=== PATIENT | female | born 1995 | race Caucasian/White ===

== ENCOUNTER 2020-05-08 21:11 | Inpatient (IN) | payer MEDICAID, SELFPAY ==
[~2020-05-08] VITALS: Ht 162.6 cm; Wt 55.8 kg
[2020-05-08 21:25] VITALS: BP_SYST 157
--- NOTE | 2020-05-08 21:30 | NUR ---
Patient to ER bed 8 to gown for evaluation. Side rails up. Report given to NATHAN.
--- NOTE | 2020-05-08 21:43 | NUR ---
BLOOD DRAWN PER LAB AND SENT
--- NOTE | 2020-05-08 21:45 | NUR ---
PT. BIB FRIEND A&Ox3 CC OVERDOSE PT. STATES SHE TOOK 60 PILLS OF BENADRYL NO SOB NO C/P PT. STATES "I JUST DID IT" AND STATES TAHT SHE WASNT TRYING TO HURT HERSELF AND WASNT IN ANY KIND OF ARGURMENT BUT THAT SHE WAS "OVERWHELMED WITH LIFE" SO SHE TOOK THE PILLS. PT. IS AMBULATORY WITH ASSISTANCE. WILL CONTINUE TO MONITOR Addendum: 05/08/20 at 2258 by [email or web address] PT. BIB FRIEND A&Ox3 CC OVERDOSE PT. STATES SHE TOOK 60 PILLS OF BENADRYL DENIES SOB AND C/P PT. STATES "I JUST DID IT" AND DENIES ATTEMPTIING TO HARM HERSELF JUST THAT SHE WAS "OVERWHELMED WITH LIFE" SO SHE TOOK THE PILLS. PT. IS AMBULATORY WITH ASSISTANCE. WILL CONTINUE TO MONITOR PT. ALSO STATES THAT SHE WAS TESTED 2 DAYS AGO AND WAS COVID POSITIVE
[2020-05-08 21:51] LABS: BASOPHILS % (AUTO) 0.2 % (0.0-2.0); EOSINOPHILS % (AUTO) 0.2 % (0.0-4.0); HEMATOCRIT 43.8 % (36-48); HEMOGLOBIN 14.3 g/dL (12.0-16.0); LYMPHOCYTES # (AUTO) 1.9 K/uL (1.0-5.5); LYMPHOCYTES % (AUTO) 26.3 % (20.5-51.5); MEAN CORPUSCULAR HEMOGLOBIN 31 pg (27-31); MEAN CORPUSCULAR HGB CONC 33 % (32-36); MEAN CORPUSCULAR VOLUME 95 fL (79.0-98.0); MONOCYTES # (AUTO) 0.6 K/uL (0.0-1.0); MONOCYTES % (AUTO) 8.6 % (1.7-9.3); NEUTROPHILS # (AUTO) 4.7 K/uL (1.8-7.7); NEUTROPHILS % (AUTO) 64.7 % (40.0-70.0); PLATELET COUNT (AUTO) 256 K/uL (130-430); RED BLOOD CELL COUNT(AUTO) 4.63 MIL/uL (4.2-6.2); RED CELL DISTRIBUTION WIDTH 14.1 % (9.0-15.0); WHITE BLOOD COUNT (AUTO) 7.2 K/uL (4.8-10.8)
--- NOTE | 2020-05-08 21:55 | NUR ---
PT. PLACED IN SIEZURE PRECAUTIONS WITH BOTH SIDE RAILS UP
--- NOTE | 2020-05-08 21:55 | NUR ---
Called poison control at , s/[facility] who recommended close monitoring for urinary retention, QRS widening, seizure episode, hypotension. Also stated that meds can cause drowsiness, dry mouth. To give NaHCO3 bolus as needed if +QRS widening on EKG, recommended seizure precaution, CMP, salicylate, UDS, blood alcohol, tylenol level and labs that the ER MD already ordered. Pt to be monitored for 6 to 8 hrs, until more stable.
--- NOTE | 2020-05-08 21:55 | NUR ---
PORTABLE CXR DONE AT BEDSIDE
[2020-05-08] MEDS ORDERED: DIAZEPAM 10 MG/2 ML DISP.SYRIN IVP ONE (22:00)
[2020-05-08] MEDS ORDERED: NACL 0.9% 2,000 ML IV ONE (22:00)
[2020-05-08] MEDS ORDERED: ACTIVATED CHARCOAL 50 GM ORAL.SUSP PO ONE ×2 (22:00→22:01)
[2020-05-08 22:04] LABS: ANION GAP 10 (5-15); CALCIUM 8.9 mg/dL (8.4-11.0); CHLORIDE 102 mmol/L (98-107); CREATININE 0.77 mg/dL (0.55-1.30); GLUCOSE 101 mg/dL (70-99); POTASSIUM 3.1 mmol/L (3.5-5.1); SODIUM SERUM 140 mmol/L (136-145); UREA NITROGEN, BLOOD 15 mg/dL (8-21)
--- NOTE | 2020-05-08 22:05 | NUR ---
R.T. AT BEDSIDE FOR ABG AND COVID SWAB OBTAINED AND SENT
[2020-05-08 22:06] LABS: GFR AFRICAN AMERICAN 121 mL/min (>90); PROTHROMBIN TIME 10.5 SECS (9.5-12.5)
[2020-05-08] MEDS ORDERED: LORazepam 2 MG/ML VIAL IVP ONE (22:15)
[2020-05-08 22:18] LABS: ALANINE AMINOTRANSFERASE 18 U/L (12-78); ALBUMIN 4.4 g/dL (3.4-4.8); ASPARTATE AMINOTRANSFERASE 14 U/L (10-37); BILIRUBIN,DIRECT 0.1 mg/dL (0.0-0.3); LIPASE 97 U/L (73-393); TOTAL BILIRUBIN 0.4 mg/dL (0.0-1.0)
[2020-05-08 22:22] LABS: ACETAMINOPHEN < 1 ug/mL (1-30); HCG,QUANTITATIVE 2 mIU/ML (0-6)
--- NOTE | 2020-05-08 22:30 | NUR ---
PT. IS BECOMING LETHARGIC AND UNCOMPREHENDABLE YET STILL ABLE TO FOLLOW COMANDS AND AROUSABLE TO PAIN MD RETANA NOTIFIED
--- NOTE | 2020-05-08 22:30 | NUR ---
DR. RETANA AT BEDSIDE TO RE-EVALUATE PT STATUS
--- NOTE | 2020-05-08 22:50 | NUR ---
PT. URINE OBTAINE DVIA STRAIGHT IN/OUT CATH AND DIPED IN ER THEN SENT TO LAB FOR FURTHER RESULTS
[2020-05-08] MEDS ORDERED: D5LR 1,000 ML IV ONE (23:00)
--- NOTE | 2020-05-08 23:00 | NUR ---
Patient incontinent of URINE . Patient cleaned, new gown applied and sheets changed. Patient given call light to notify of need to go to bathroom. PT CONFUSED AND ATTEMPTING TO EXIT THE BED PT. PLACED IN LOWEST POSITION WITH SIDE RAISL UP AND PADDED PT. REORIENTED AND REPOSITIONED
[2020-05-08 23:05] LABS: BILIRUBIN,URINE NEGATIVE (NEGATIVE); BLOOD, URINE NEGATIVE (NEGATIVE); CLARITY/URINE CLEAR (CLEAR); COLOR,URINE YELLOW (YELLOW); GLUCOSE,URINE NEGATIVE (NEGATIVE); KETONES,URINE 1+ (NEGATIVE); LEUKOCYTE ESTERASE ,URINE NEGATIVE (NEGATIVE); NITRITE, URINE NEGATIVE (NEGATIVE); PH,URINE 7.5 (5.0-8.0); PROTEIN URINE NEGATIVE (NEGATIVE); UROBILINOGEN,URINE 0.2 (0.2-1.0)
--- NOTE | 2020-05-08 23:11 | NUR ---
PT. WANDED BY HOSPITAL SECURITY AND PT. BELONGINGS SENT WITH [facility]
[2020-05-08 23:15] LABS: BARBITURATE, URINE NEGATIVE (NEG <=200); BENZODIAZEPINE, URINE NEGATIVE (NEG <=150); CANNABINOID, URINE NEGATIVE (NEG <=50); COCAINE, URINE NEGATIVE (NEG <=150); METHAMPHETAMINES SCREEN,URINE NEGATIVE (NEG <=500); OPIATE, URINE NEGATIVE (NEG <=100); PHENCYCLIDINE SCREEN,URINE NEGATIVE (NEG <=25); UR TRICYCLIC ANTIDEPRESSANTS NEGATIVE (NEG <=300); URINE AMPHETAMINE NEGATIVE (NEG <=500); URINE METHADONE NEGATIVE (NEG <=200); URINE OXYCODONE SCREEN NEGATIVE (NEG <=100); URINE PROPOXYPHENE SCREEN NEGATIVE (NEG <=300)
--- NOTE | 2020-05-08 23:25 | NUR ---
SPOKE WITH TELEPSYCH AND INFORMED MD RETANA OF CONSULT TO PUT ON A 7400 HOLD
--- NOTE | 2020-05-08 23:50 | NUR ---
Patient incontinent of URINE . Patient cleaned, new gown applied and sheets changed. Patient CONFUSED AND GIVEN REORIENTATION AND REPOSITIONING
--- NOTE | 2020-05-09 | NUR ---
PT. ATTEMPTING TO GET OUT OF BED NEEDS REORIENTATION
[2020-05-09] MEDS: D5/0.45 NS 1,000 ML IV SCH ×2 (00:03→12:50)
--- NOTE | 2020-05-09 00:30 | NUR ---
PT. TOLERATING CATHEDER PLACEMENT AND IN BED WITH SEIZURE PADS ON BED RAILS 1200ML OF URINE OUTPUT NOTED IN BRASWELL BAG WILL CONTINUE TO MONITOR
--- NOTE | 2020-05-09 01:00 | NUR ---
PT. CONTINUES TO GET OUT OF BED AND REMOVE IV CONTIUED TO ATTEMPT TO REORIENT PT DUE TO MOMENTS OF CONFUSION
--- NOTE | 2020-05-09 02:00 | NUR ---
PT. CONTINUES TO HAVE MOMENTS OF CONFUSION AND NEEDS REORIENTATION AND REPOSITIONING IN BED
--- NOTE | 2020-05-09 02:35 | NUR ---
PT. BRASWELL CATH BAG DRAINE DOF 1600ML OF CLEAR YELLOW URINE
--- NOTE | 2020-05-09 02:59 | NUR ---
BEDSIDE REPORT GIVEN TO HAIR WEAVERBELIA UPTON WHO WILL ASSUME CARE
--- NOTE | 2020-05-09 03:30 | NUR ---
Patient speaking jibberish at this time. Sitter at bedside.
--- NOTE | 2020-05-09 04:17 | NUR ---
Patient is currently confused but cooperative at this time. Sitter at bedside.
--- NOTE | 2020-05-09 05:23 | NUR ---
Patient sleeping comfortably in bed. No acute distress, rise and fall of chest are symmetrical. Will continue to monitor.
--- NOTE | 2020-05-09 06:47 | NUR ---
Patient is calm and cooperative. Pt is alert to name, place, time, and situation. Pt watching TV. No acute distress, will continue to monitor. Sitter at bedside.
--- NOTE | 2020-05-09 07:34 | NUR ---
REPORT RECEIVED FROM BELIA UPTON FOR CONTINUING CARE
--- NOTE | 2020-05-09 07:40 | NUR ---
Patient placed on suicide precautions. Patient placed in room within close proximity to nurses' station for closer observation and monitoring. All clothing removed, placed in hospital gown. Metal detector wand used to further screen patient of any potential hazardous belongings. All belongings inventoried, placed in bags and removed from room. Cabinets locked. BP and pulse oximeter cords, and repair weaver leads removed.
[2020-05-09 07:43] LABS: BASOPHILS % (AUTO) 0.1 % (0.0-2.0); EOSINOPHILS % (AUTO) 0.1 % (0.0-4.0); HEMATOCRIT 43.4 % (36-48); HEMOGLOBIN 14.5 g/dL (12.0-16.0); LYMPHOCYTES # (AUTO) 1.7 K/uL (1.0-5.5); LYMPHOCYTES % (AUTO) 23.7 % (20.5-51.5); MEAN CORPUSCULAR HEMOGLOBIN 32 pg (27-31); MEAN CORPUSCULAR HGB CONC 33 % (32-36); MEAN CORPUSCULAR VOLUME 95 fL (79.0-98.0); MONOCYTES # (AUTO) 0.7 K/uL (0.0-1.0); MONOCYTES % (AUTO) 9.9 % (1.7-9.3); NEUTROPHILS # (AUTO) 4.9 K/uL (1.8-7.7); NEUTROPHILS % (AUTO) 66.2 % (40.0-70.0); PLATELET COUNT (AUTO) 236 K/uL (130-430); WHITE BLOOD COUNT (AUTO) 7.4 K/uL (4.8-10.8)
[2020-05-09 07:53] LABS: ALBUMIN 4.2 g/dL (3.4-4.8); CALCIUM 8.7 mg/dL (8.4-11.0); CREATININE 0.51 mg/dL (0.55-1.30); POTASSIUM 4.1 mmol/L (3.5-5.1); TOTAL BILIRUBIN 0.6 mg/dL (0.0-1.0)
--- NOTE | 2020-05-09 08:15 | NUR ---
MOVED TO ER BED 1 FOR CLOSE MONITORING
--- NOTE | 2020-05-09 08:21 | NUR ---
PT SLEEPING IN BED, EASILY ARROUSABLE TO VOICE. AAOX4, V/S STABLE
--- NOTE | 2020-05-09 09:15 | NUR ---
PT SLEEPING IN BED, NO S/SX DISTRESS. V/S STABLE
--- NOTE | 2020-05-09 10:00 | NUR ---
PT AAOX4, REQESTING TO USE THE RESTROOM FOR BM. BRASWELL DC'D WITH 1L OF CLEAR YELLOW URINE. PT TOLERATED WELL AND ABLE TO VOID IMMEDIATELY AFTER REMOVAL. AMBULATED WITH STEADY GAIT.
--- NOTE | 2020-05-09 11:43 | NUR ---
PT PROVIDED WITH LUNCH TRAY
--- NOTE | 2020-05-09 12:30 | NUR ---
PT SLEEPING IN BED, NO DISTRESS NOTED. V/S STABLE
--- NOTE | 2020-05-09 13:15 | NUR ---
PT RESTING IN BED, NO DISTRESS NOTES, V/S STABLE
--- NOTE | 2020-05-09 14:08 | NUR ---
Pt resting at this time, respirations even and unlabored.
--- NOTE | 2020-05-09 14:12 | NUR ---
DR. HATFIELD AT THE BEDSIDE FOR PSYCHIATRIC EVAL
--- NOTE | 2020-05-09 14:18 | NUR ---
PT PLACED ON 5150 DTS 05/09/20@[address] HATFIELD
--- NOTE | 2020-05-09 15:38 | NUR ---
PT SLEEPING IN BED, NO DISTRESS NOTED. V/S STABLE
--- NOTE | 2020-05-09 16:30 | NUR ---
PT SLEEPING, NO DISTRESS NOTED. V/S STABLE
--- NOTE | 2020-05-09 17:18 | NUR ---
WITH PT'S VERBAL CONSENT, PT'S PARENTS WERE GIVEN AN UPDATE ON HER STATUS AND CONDITION.
--- NOTE | 2020-05-09 18:18 | NUR ---
PT GIVEN DINNER TRAY, ENCOURAGED TO EAT
--- NOTE | 2020-05-09 19:17 | NUR ---
Afia hussein in [facility] - 05/09/20 at 1918 by [email or web address] REPORT GIVEN TO BELIA URIBE FOR CONTINUING CARE
--- NOTE | 2020-05-09 19:19 | NUR ---
REPORT GIVEN TO BELIA URIBE FOR CONTINUING CARE
--- NOTE | 2020-05-09 19:30 | NUR ---
pt received and report from BELIA Ramires PT SLEEPING RESP EVEN CONT HOLD 5150 VSS CONT ON MONITORING CLOSELY
--- NOTE | 2020-05-09 20:56 | NUR ---
PT SLEEPING EASILY AROUSED FOLLOWS COMMANDS CALM
--- NOTE | 2020-05-10 | NUR ---
PT SLEEPING NO DISTRESS RESP EVEN EASILY AROUSED CALM COOPERATIVE
[2020-05-10] MEDS: D5/0.45 NS 1,000 ML IV SCH ×2 (02:09→15:50)
--- NOTE | 2020-05-10 06:17 | NUR ---
PT AWAKE CALM COOPERATIVE DENIES SI
--- NOTE | 2020-05-10 07:17 | NUR ---
report to day rn
--- NOTE | 2020-05-10 07:30 | NUR ---
Assumed care of patient, currently sleeping in bed, will continue to monitor.
--- NOTE | 2020-05-10 08:11 | NUR ---
Called dietary to request breakfast tray.
--- NOTE | 2020-05-10 08:59 | NUR ---
Pt refused breakfast tray, states she's not hungry
--- NOTE | 2020-05-10 12:52 | NUR ---
Lunch tray provided to patient
--- NOTE | 2020-05-10 13:41 | NUR ---
Pt resting at this time, no s/s of distress
--- NOTE | 2020-05-10 19:22 | NUR ---
Care of patient endorsed to BELIA Chairez. Pt currently resting in bed, no distress noted.
--- NOTE | 2020-05-10 20:01 | NUR ---
Patient finished her meal tray, no vomitting.
--- NOTE | 2020-05-10 21:20 | NUR ---
Patient is sleeping on bed/
--- NOTE | 2020-05-11 00:15 | NUR ---
Patient resting quietly. No acute distress noted. Vital signs within normal range.
--- NOTE | 2020-05-11 02:42 | NUR ---
Patient sleeping, no distress
--- NOTE | 2020-05-11 04:16 | NUR ---
Patient sleeping, no acute distress.
[2020-05-11] MEDS: D5/0.45 NS 1,000 ML IV SCH ×2 (05:04→17:55)
--- NOTE | 2020-05-11 06:29 | NUR ---
Patient sleeping, no acute distress.
--- NOTE | 2020-05-11 07:37 | NUR ---
CONSULT CALLED: JOHN SYICIDAL IDEATIONS SPOKE WITH OTIS REASON FOR CONSULT- GRAVELT DISABLED
--- NOTE | 2020-05-11 07:53 | NUR ---
Assumed care of patient at change of shift. Introduced self to patient, positioned for comfort and safety w/ bed to low position sr up and frequent checks. Patient resting quietly. No acute distress noted. No bizarre or unusual behavior noted. Vital signs within normal range.
--- NOTE | 2020-05-11 11:00 | NUR ---
care assumed from Cullen CELAYA. pt is in stable condition.
--- NOTE | 2020-05-11 11:20 | NUR ---
pt is awake and in stable condition.
--- NOTE | 2020-05-11 11:48 | NUR ---
SS notes: BAND DIRECTOR phoned [facility] [email or web address] (p: [phone]) and spoke with ISAIAS who stated no beds found. Possible acceptance at [facility], pending discharges. SS will follow up.
--- NOTE | 2020-05-11 12:30 | NUR ---
per dr. BRIAN PT IS MEDICALLY STABLE TO TRANSFER
--- NOTE | 2020-05-11 14:30 | NUR ---
pt is having lunch.
--- NOTE | 2020-05-11 16:25 | NUR ---
PATIENT ACCEPTED TO [facility] spoke with stephon from [facility] patient will be going to bed [address] accepting phy. dr el phone number for report: [phone] once nurse gets report, we can set up transportation
--- NOTE | 2020-05-11 16:30 | NUR ---
pt is sleeping in the [facility]
--- NOTE | 2020-05-11 18:26 | NUR ---
pt is awake and resting in the gurney
--- NOTE | 2020-05-11 18:38 | NUR ---
REPORT CALLED TO BELIA FARIAS
--- NOTE | 2020-05-11 19:15 | NUR ---
Assumed care of patient at change of shift. introduced self to patient, positioned for comfort and safety. no bizarre or unusual behavior noted. Patient resting quietly. No acute distress noted. Vital signs within normal range. Awaiting transportation team to transfer to [facility]. Patient verbalized understanding and reason for transfer.
--- NOTE | 2020-05-11 19:15 | NUR ---
care endorsed to Geoff CELAYA. Pt is in stable condition.
--- NOTE | 2020-05-11 19:52 | NUR ---
Patient to be transferred to [facility]. Is being transferred due to higher level of care. Receiving facility has accepting physician and available space. ER physician has signed transfer form. Patient or responsible green party has agreed to transfer and signed form. Patient belongings inventoried and will be sent with patient. Copy of nursing notes, lab reports, EKG, Physicians Orders and X-rays to be sent with patient. Report called to at receiving facility. Receiving physician is . ambulance service is at bedside
--- NOTE | 2020-05-11 19:52 | NUR ---
Report given to Lead EMT for [facility].
[2020-05-11 19:54] VITALS: BP_SYST 107
--- NOTE | 2020-05-11 23:20 | NUR ---
CALLED ADMITTING I SPOKE WITH SOPHIA TOLD ABOUT THIS PATIENT SHE WAS TRANSFER TO [facility] FOR HIGHER LEVEL OF CARE ALSO CODY IS AWARE I HERD WHEN SOPHIA ASKED.
--- NOTE | 2020-05-12 01:00 | NUR ---
I INFORMED ADMITTING YESTERDAY 05/11/2020 AT 2320 I SPOKE WITH SOPHIA ROSS IS ALSO AWARE THAT THIS PATIENT WAS TRANSFER TO [facility] TO HIGHER LEVEL OF CARE AT 1952 ON 05/11/2020 UNTIL NOW PATIENT STILL IN OUR CENSUS
--- NOTE | 2020-05-12 14:44 | NUR ---
Farm Machine Operator: ;follow up. Patient is in need of psyc. placement as she has a 5150 hold on her from Dr. Estevez. MACHINE STAPLER made a follow up phone call to [facility] and spoke to Art. He stated patient is no longer on the board and apologized asking for the clinicals again. MACHINE STAPLER called ER monitor Cullen and confirmed this patient has left for [facility] and does not know why patient is showing on [facility] census. MACHINE STAPLER faxed over clinicals. In reading this case, MACHINE STAPLER learned that patient is still showing up on the [facility] census, but has been transferred over to [facility]. MACHINE STAPLER called Art back and notified him at which time Art also stated he learned of patients transfer. MACHINE STAPLER thanked him for his help.
== END 2020-05-11 19:52 | DRG 812 ==
LOC: SED 21:11 → STU 23:13
PROVIDERS: ADMIT Internal Medicine; ATTEND Internal Medicine
DX: T45.0X1A Poisoning by antiallergic and antiemetic drugs, accidental (unintentional), initial encounter (principal); R45.851 Suicidal ideations; F33.9 Major depressive disorder, recurrent, unspecified; R00.0 Tachycardia, unspecified; Z20.828 Contact with and (suspected) exposure to other viral communicable diseases; Y92.89 Other specified places as the place of occurrence of the external cause
CPT/HCPCS: 36415; 36600; 71045; 80048; 80053; 80076; 80307; 81003; 82803-TC; 83690-TC; 83880; 84484; 84702-TC; 85025; 85610-TC; 93005; 96361; 96374; 99285; G0378; G0480; G0481; G0482; J2060